=== PATIENT | male | born 1940 | race Caucasian/White ===

== ENCOUNTER → 2024-01-23 10:11 | Outpatient (REF) | payer MEDICARE, SELFPAY | LOC: RCS 10:11 | PROVIDERS: ATTENDING PHYSICIAN Internal Medicine | DX: I70.90 Unspecified atherosclerosis (principal); I25.10 Atherosclerotic heart disease of native coronary artery without angina pectoris; R42 Dizziness and giddiness | CPT/HCPCS: 93306 ==

== ENCOUNTER → 2024-01-27 13:17 | Outpatient (REF) | payer MEDICARE, SELFPAY | LOC: RAD 13:17 | PROVIDERS: ATTENDING PHYSICIAN Internal Medicine | DX: I70.90 Unspecified atherosclerosis (principal); I25.10 Atherosclerotic heart disease of native coronary artery without angina pectoris; R42 Dizziness and giddiness | CPT/HCPCS: 93880 ==

== ENCOUNTER → 2024-05-19 13:56 | Outpatient (REF) | payer MEDICARE, SELFPAY ==
[2024-05-20 18:32] LABS: PSA, Total - Diagnostic 0.25 ng/ml (0.0-4.0)
[2024-05-21 17:38] LABS: % Free Testosterone 1.3 % (1.6-2.9); Free Testosterone 47 pg/mL (47-244); Sex Hormone Binding Globulin 56 nmol/L (19-76); Total Testosterone 358 ng/dL (300-720)
== END ==
LOC: REG 13:56
PROVIDERS: ATTENDING PHYSICIAN Family Medicine Geriatric Medicine; FAMILY PHYSICIAN Internal Medicine
DX: C61 Malignant neoplasm of prostate (principal); Z79.818 Long term (current) use of other agents affecting estrogen receptors and estrogen levels
CPT/HCPCS: 36415; 84153; 84270; 84402; 84403

== ENCOUNTER 2024-09-12 00:31 | Inpatient (IN) | payer MEDICARE, SELFPAY ==
[2024-09-11] VITALS (7 sets, daily range): BP systolic 158–179; BP diastolic 77–91; BMI 28.3
[2024-09-11 18:26] LABS: % Basophils 0.4 % (0-2); % Eosinophils 0.4 % (0-6); % Immature Granulocytes 0.4 % (0-0.5); % Lymphocytes 6.9 % (20.5-51.1); % Monocytes 4.2 % (1.7-9.3); % Neutrophils 87.7 % (42.2-75.2); Absolute Basophils 0.1 10^3/uL (0-0.2); Absolute Eosinophils 0.1 10^3/uL (0-0.7); Absolute Immature Granulocytes 0.1 10^3/uL (0-0.05); Absolute Lymphocytes 0.8 10^3/uL (1.2-3.4); Absolute Monocytes 0.5 10^3/uL (0.1-0.6); Hematocrit 39.7 % (39.0-52.0); Mean Corp Hgb Conc. 35.3 g/dL (33.0-37.0); Mean Corpuscular Hgb 31.3 pg (27.0-31.0); Mean Corpuscular Volume 88.6 fL (80.0-94.0); Mean Platelet Volume 9.6 fL (7.4-10.4); Nucleated Red Blood Cells % 0 % (-); Platelet Count 231 10^3/uL (130-400); Red Blood Cell Count 4.48 10^6/uL (4.70-6.10); Red Cell Dist. Width 12.5 % (11.5-14.5); White Blood Cell Count 11.5 10^3/uL (4.8-10.8)
[2024-09-11 18:48] LABS: ALT (SGPT) 24 U/L (0-50); AST (SGOT) 30 U/L (17-59); Albumin 4.4 g/dl (3.5-5.0); Alkaline Phosphatase 75 U/L (38-126); Blood Urea Nitrogen 24 mg/dl (9-20); Carbon Dioxide 20 mmol/L (22-30); Chloride 105 mmol/L (98-107); Estimated Creatinine Clearance 50 ml/min; Glucose 111 mg/dl (70-99); Lipase 69 U/L (23-300); Potassium 4.6 mmol/L (3.5-5.1); Sodium 139 mmol/L (135-145); Total Bilirubin 0.7 mg/dl (0.2-1.3); eGFR > 60.00
[2024-09-11 19:06] LABS: Troponin I < 0.012 ng/ml
[2024-09-11] MEDS: PEPCID 20 MG IV (19:15)
[2024-09-11 19:26] LABS: Urine Albumin Trace (Neg - Trace); Urine Bilirubin Negative (Negative); Urine Character Clear (Clear); Urine Color Yellow; Urine Glucose Negative (Negative); Urine Ketone 3+ (Negative); Urine Leukocyte Negative (Negative); Urine Nitrite Negative (Negative); Urine Occult Blood Negative (Negative); Urine Specific Gravity 1.015 (<1.030); Urine Urobilinogen Negative (Neg - 1+); Urine pH 6.5 (5.0-9.0)
[2024-09-12] VITALS (15 sets, daily range): BP systolic 20–160; BP diastolic 54–86; BMI 27.9
--- NOTE | 2024-09-12 00:23 | ED.GENMED ---
History of Present Illness
General
Chief Complaint: Abdominal Pain
Source: patient
Exam Limitations: none
Time Seen by Provider: 09/11/24 18:05
Nursing documentation reviewed up to this point in time: agreed with
History of Present Illness
History of Present Illness:
83-year-old male with past medical history of asthma GERD, hypothyroidism presenting to the emergency department today with concerns of right upper quadrant and upper abdominal. Vomiting since this morning. Similar symptoms in the past. Denies
specific chest pain shortness of breath changes in bowel movements.
Review of Systems
Review of Systems
Allergies reviewed?: Yes
All Other Systems: ROS reviewed and negative except as documented in HPI and ROS
Phy Exam
Physical Exam
Physical Exam:
GENERAL: Alert , in no apparent distress
EYE: pupils equal and reactive
NECK: Supple, no significant adenopathy.
ENT: o/p clr, mmm.
CARDIAC: Regular rate and rhythm .
LUNGS: Clear breath sounds bilaterally, no acute respiratory distress, no wheezes/rales/rhonchi
ABDOMEN: Tender palpation throughout the upper abdomen.
NEUROLOGICAL: Alert and oriented, no focal neuro deficits
SKIN: Warm and dry, skin intact.
MUSCULOSKELETAL: No edema, well perfused.
PSYCH: Normal and appropriate interaction.
Course
Orders/Labs/Results
Orders:
Orders
09/11/24 17:42
Electrocardiogram (*1) Urgent
Reason for Study: Chest Pain
EKG- Treatment ONCE
09/11/24 18:20
Complete Blood Count/With Diff Urgent
Comprehensive Metabolic Panel Urgent
Lipase Urgent
Troponin I Urgent
09/11/24 18:57
CT Abd/Pel (IV only)-DH only Urgent
Comment:
Reason For Exam: diffuse abd pain, vomiting today
Famotidine [Pepcid] 20 mg IV NOW STA
09/11/24 19:18
Urinalysis Reflex To Culture Urgent
Date Specimen was Collected: 09/11/24
Time Specimen was Collected: 19:09
09/11/24 22:05
US Abdomen Complete/Upper Urgent
Comment:
Reason For Exam: ct concerning for acute addie
09/11/24 23:55
Ketorolac [Toradol] 30 mg IV NOW STA
Piperacillin/Tazo 3.375 Gram [Zosyn] 3.375 gram in 50 ml IV NOW
09/11/24 23:56
0.9% Sodium Chloride 500 ml [Nss] 500 ml IV BOLUS
09/12/24 08:00
Levothyroxine [Synthroid] 25 mcg PO DAILY
cyclosporine [Restasis] 1 drp OPHTHALMIC (EYE) DAILY
lifitegrast [Xiidra] 1 drop OPHTH DAILY
09/12/24 18:00
Rosuvastatin Calcium [Crestor] 10 mg PO QPM
Tamsulosin [Flomax] 0.4 mg PO QPM
Abnormal Lab Results
09/11/24 09/11/24
18:20 19:18
WBC 11.5 H 10^3/uL
(4.8-10.8)
RBC 4.48 L 10^6/uL
(4.70-6.10)
MCH 31.3 H pg
(27.0-31.0)
Abs Immat Gran (auto) 0.1 H 10^3/uL
(0-0.05)
Absolute Neuts (auto) 10.0 H 10^3/uL
(1.4-6.5)
Absolute Lymphs (auto) 0.8 L 10^3/uL
(1.2-3.4)
Neutrophils % 87.7 H %
(42.2-75.2)
Lymphocytes % 6.9 L %
(20.5-51.1)
Carbon Dioxide 20 L mmol/L
(22-30)
BUN 24 H mg/dl
(9-20)
Glucose 111 H mg/dl
(70-99)
Urine Ketones 3+ A
(Negative)
09/11/24 18:20
09/11/24 18:20
Vital Signs
Initial and Last Documented VS:
Initial Vital Signs
Temp Pulse Resp BP Pulse Ox
97.1 F 67 18 179/78 97
09/11/24 17:41 09/11/24 17:41 09/11/24 17:41 09/11/24 17:41 09/11/24 17:41
Last Documented Vital Signs
Temp Pulse Resp BP Pulse Ox
97.1 F 94 18 160/84 97
09/11/24 17:41 09/12/24 00:15 09/11/24 18:12 09/12/24 00:03 09/12/24 00:15
MDM/Problems Addressed
MDM/Problems Addressed:
83-year-old male presenting to the emergency department today with concerns of upper abdominal pain starting this morning associated nausea and vomiting. No diarrhea. Blood pressure elevated upon arrival otherwise vital signs are normal. Slight
white count on labs 11.5. Chemistry without emergent findings troponin negative no evidence of cardiac etiology. Abdomen CT scan was performed considering patient's vague abdominal pain. There is concerning features for cholecystitis. He then
subsequently had an ultrasound showing further concerning features of cholecystitis. Case discussed with general surgery then admitted to medicine for monitoring and assessment by general surgery.
*Critical Care Note
Total Time (30-74mins, 75-104mins- exclusive of procedures): Not Applicable
ED Attending Note
-
Portions of this chart may have been created with voice recognition software.� Occasional wrong word or��sound alike� substitutions may have occurred due to the inherent limitations of voice recognition software.
Discharge Plan
Departure
Patient Disposition: Admit
Date of Disposition: 09/12/24
Time of Disposition: 00:26
Admit to: Med/Surg
Admit to doctor: Kalpana
Presentation/result/management discussed w/ accepting MD/DO: Hospitalist
Patient with high blood pressure during this ER visit?: No
Condition: Good
Covid-19: Not Applicable
Discharge Problem:
Acute cholecystitis
Prescriptions:
No Action
levothyroxine [Synthroid] 25 mcg Tablet
25 mcg PO DAILY
tamsulosin [Flomax] 0.4 mg Capsule
0.4 mg PO QPM
cyclosporine [Restasis] 0.05 % Dropperette
1 drp OPHTHALMIC (EYE) DAILY
metformin 750 mg Tablet Extended Release 24 Hr
750 mg PO QPM
rosuvastatin [Crestor] 10 mg Tablet
10 mg PO QPM
omega 2-obo-whn-fish oil [Fish Oil] 1,000 mg (120 mg-180 mg) Capsule
2 cap PO BID
psyllium husk [Metamucil] 0.4 gram Capsule
0.4 g PO BID
Xiidra 5 % Dropperette
1 drp OPHTHALMIC (EYE) DAILY
Red Grape Leaves
1 cap PO DAILY
Patient Comments:
Similar to Resveritrol
PreserVision AREDS-2 250-90-40-1 mg Capsule
1 tab PO BID
Referrals:
Babs Bhardwaj MD [Family Provider] -
Interventions
Interventions:
*Risk Screen - Suicide Last Done: 09/11/24 17:41
*General Assessment Last Done: 09/11/24 17:41
*Neglect/Abuse Screening Last Done: 09/11/24 17:41
SR-Kuqvtt-Opshsmatzz Assessment Last Done: 09/11/24 18:24
Discharge Date and Time
Print Language: ITALIAN
--- NOTE | 2024-09-12 00:25 | HPS.HSE ---
Family Physician
-
Family Physician: Babs Bhardwaj
Chief Complaint
-
Epigastric abdominal pain and vomiting
History of Present Illness
This is a 83-year-old male who has past medical history that significant for prostate cancer s/p radiation, hypothyroidism, GERD, BPH presenting to the emergency department with a 1 day history of epigastric abdominal pain associated with nonbilious
and nonbloody emesis.
Patient reported that he arose in usual state of health. The previous evening ED had 4 bottles of beer which is to more than his usual. He had no symptoms at that time. When he arose he felt uncomfortable in the epigastric region and developed a
bandlike pain across his upper abdomen. He had several bouts of nonbloody and nonbilious emesis of mostly clear material. He denies any recent melena or hematochezia. He denies any recent heartburn symptoms. Patient was recently on NSAIDs for
tooth extraction in preparation for implantation. He noticed that while in reliable his pain was worsened with bumps and vehicle movement. Denied having fevers or chills at home. Denied any dysuria or hematuria. Patient denies history of
alcoholic pancreatitis. He denies any history of gallstone disease. Unclear whether he has had an appendicitis in the past status post surgery.
On arrival in the ED he was afebrile with a blood pressure in the 180s systolic. He was satting 9 7% on room air. He had a white count of 11.5 with a normal hemoglobin and platelet count. Chemistries were unremarkable. LFTs were within normal
limits. Troponin was negative. UA was unremarkable. Ultrasound showed mild sludge and possible gallbladder wall thickening. He CT scan shows EZH2 the gallbladder wall. No definite pericholecystic fluid.
Medical History
Past Medical History
Past Medical History: Reports GERD, Hypercholesterolemia and Hypothyroidism
Additional Past Medical History:
Prostate cancer
Past Surgical History: Reports None
Additional Past Surgical History:
Prostate biopsy
Social History
Tobacco: Non-smoker
Alcohol: Daily
Drug: None
Personal:
Living: With Family
Employment: Retired
Family History
Family History: Not pertinent
Allergies / Home Medications
Allergies reflects when Allergies were last updated in [employer].
Home Medications with original date entered in [employer]
Allergy/Medication List:
Allergies
Allergy/AdvReac Type Severity Reaction Status Date / Time
No Known Allergies Allergy Verified 09/11/24 17:41
Home Medications
Red Grape Leaves 1 cap PO DAILY 07/15/22
cyclosporine 0.05 % eye drops in a dropperette (Restasis) 1 drp ophthalmic (eye) DAILY 07/15/22
levothyroxine 25 mcg tablet (Synthroid) 25 mcg PO DAILY 07/15/22
lifitegrast 5 % eye drops in a dropperette (Xiidra) 1 drp ophthalmic (eye) DAILY 07/15/22
metformin 750 mg tablet,extended release 24 hr 750 mg PO QPM 07/15/22
omega 2-cqx-pny-fish oil 1,000 mg (120 mg-180 mg) capsule (Fish Oil) 2 cap PO BID 07/15/22
psyllium husk 0.4 gram capsule (Metamucil) 0.4 g PO BID 07/15/22
rosuvastatin 10 mg tablet (Crestor) 10 mg PO QPM 07/15/22
tamsulosin 0.4 mg capsule (Flomax) 0.4 mg PO QPM 07/15/22
vit C 250 mg-vit E 90 mg-zinc 40 mg-copper 1 dx-fmzttw-gokodz capsule (PreserVision AREDS-2) 1 tab PO BID 09/11/24
Review of Systems
-
Constitutional: Reports No Symptoms
EENT: Reports No Symptoms
Respiratory: Reports No Symptoms
Cardiac: Reports No Symptoms
Abdomen/GI: Reports Abdominal Pain and Vomiting
: Reports No Symptoms
Musculoskeletal: Reports No Symptoms
Skin: Reports No Symptoms
Neurological: Reports No Symptoms
Endocrine: Reports No Symptoms
Hematologic/Lymphatic: Reports No Symptoms
Psych: Reports No Symptoms
Physical Exam
Vital Signs
Vital Signs
Temp Pulse Resp BP Pulse Ox
97.1 F 94 18 160/84 97
09/11/24 17:41 09/12/24 00:15 09/11/24 18:12 09/12/24 00:03 09/12/24 00:15
Physical Exam
General: Well Developed, Well Nourished, No Apparent Distress and Conversant
HEENT: NormoCephalic, Anicteric, Moist mucous membranes, Atraumatic and PERRLA
Respiratory: Clear
Cardiac: S1/S2 and Regular Rhythm
GI: Soft and Tender (RUQ tenderness)
Rectal: Deferred by Provider
Genito-urinary: Deferred by me
Musculoskeletal: No Clubbing, No Cyanosis and No Edema
Neuro: AO x 3
Hematologic/Lymphatic: No Lymphadenopathy
Psych: Calm
Laboratory Results
-
09/11/24 18:20
09/11/24 18:20
Laboratory Results
Total Bilirubin 0.7 mg/dl (0.2-1.3) 09/11/24 18:20
AST 30 U/L (17-59) 09/11/24 18:20
ALT 24 U/L (0-50) 09/11/24 18:20
Alkaline Phosphatase 75 U/L (38-126) 09/11/24 18:20
Troponin I < 0.012 ng/ml 09/11/24 18:20
Lipase 69 U/L (23-300) 09/11/24 18:20
Data Reviewed
-
CT Scan: Report Reviewed by me
Ultrasound: Report Reviewed by me
Lab Data: Labs Reviewed by me
Old Records: Reviewed
Impression/Plan
-
IMPRESSION:
83-year-old coming with episode of acute abdominal pain that started this a.m. and associated with nonbilious and nonbloody emesis. Pain is localized in the upper abdomen and radiates across the upper abdomen. Worse with movement. On exam he does
have a right upper quadrant tenderness to palpation. Labs are notable for leukocytosis. Imaging showed mild sludge and possible gallbladder wall thickening and there is a gallbladder consistent with cholecystitis. No biliary ductal dilatation.
LFTs are within normal limits. Negative lipase. Besides the pain is otherwise well-appearing and nontoxic.
PLAN:
1. ABD Pain -acute abdominal pain possibly secondary to acute cholecystitis. Patient is well-appearing and in no acute distress. Cannot rule out possible gastritis in the setting of NSAID use and increased alcohol intake for 1 day.
- admit to med/surg
- NPO for now
- started on IV zosyn, will continue empirically for acute cholecystitis
- gentle maintenance fluids, pain control and antiemetics
- gi ppx with ppi iv
- blood cultures if spike fever.
- trend LFTs, given equivocal findings on imaging, will get HIDA scan
- surgery aware and consulted to see patient in am.
- holding metformin (not diabetic, A1c < 6), continue tamsulosin
DVT PPX - lovenox sq
Code Status - Full Code, previously DNR
[2024-09-12] MEDS: NSS 500 IV (00:57)
[2024-09-12] MEDS: TORADOL 30 MG IV (00:59)
[2024-09-12] MEDS: ZOSYN 50 IV ×5 (01:02→23:23)
[2024-09-12] MEDS: LR 1000 IV ×2 (02:15→23:27)
--- NOTE | 2024-09-12 02:47 | PTCARENOTE ---
Pt arrived via stretcher from ED at 0145. Pt was able to ambulate to bed. Pt AAOX3. VSS. IVF per order. head to toe assessment complete. Pt NPO for possible surgery. oriented to room and call mancera. bed locked and in lowest position.
[2024-09-12] MEDS: SYNTHROID 25 MCG PO (05:07)
--- NOTE | 2024-09-12 05:34 | PTCARENOTE ---
first set of CHG wipes complete.
[2024-09-12 07:05] LABS: Hematocrit 40.7 % (39.0-52.0); Hemoglobin 14.3 g/dL (13.0-18.0); Mean Corp Hgb Conc. 35.1 g/dL (33.0-37.0); Mean Corpuscular Hgb 32.6 pg (27.0-31.0); Mean Corpuscular Volume 92.7 fL (80.0-94.0); Mean Platelet Volume 10.4 fL (7.4-10.4); Platelet Count 247 10^3/uL (130-400); Red Blood Cell Count 4.39 10^6/uL (4.70-6.10); Red Cell Dist. Width 12.6 % (11.5-14.5); White Blood Cell Count 18.8 10^3/uL (4.8-10.8)
[2024-09-12 07:24] LABS: ALT (SGPT) 23 U/L (0-50); AST (SGOT) 29 U/L (17-59); Albumin 4.4 g/dl (3.5-5.0); Alkaline Phosphatase 61 U/L (38-126); Blood Urea Nitrogen 22 mg/dl (9-20); Calcium 9.6 mg/dl (8.4-10.2); Carbon Dioxide 22 mmol/L (22-30); Chloride 101 mmol/L (98-107); Direct Bilirubin 0.1 mg/dl (0.0-0.4); Estimated Creatinine Clearance 45 ml/min; Glucose 110 mg/dl (70-99); Lipase 54 U/L (23-300); Potassium 4.1 mmol/L (3.5-5.1); Sodium 139 mmol/L (135-145); Total Bilirubin 1.1 mg/dl (0.2-1.3); eGFR 54.85
[2024-09-12] MEDS: PROTONIX IV 40 MG IV (08:33)
[2024-09-12] MEDS: NSS (PRESERVATIVE FREE) 10 ML IV (08:34)
[2024-09-12] MEDS: RESTASIS 0.05% OPHTHALMIC EMULSION 1 DROPS BOTH EYES (08:34)
--- NOTE | 2024-09-12 08:56 | CON.GS ---
Addendum entered and electronically signed by Boby Suresh MD 09/12/24 10:46:
I saw and examined the patient independently.
The Press Operator's note was reviewed and I agree with the note, assessment and plan except where noted below.
Comment: This is an 83-year-old male with a history of prostate cancer status post XRT, no prior abdominal surgeries who presents with a postprandial right upper quadrant abdominal pain. CT and ultrasound imaging concerning for acute cholecystitis.
Has developed a leukocytosis since admission. Tender to palpation in the right upper quadrant.
Cancel HIDA scan.
Will plan for a laparoscopic cholecystectomy with cholangiogram today.
N.p.o., IV fluids, IV Zosyn.
Risks/Benefits/Alternatives, expected postoperative course and possible complications (bleeding, infection, injury to surrounding structures, acute/chronic pain) discussed at length. Patient wishes to proceed with surgery. All questions answered.
Consent obtained.
I spent 60 minutes in total for the care of this patient today including direct patient care and counseling, reviewing labs, imaging, coordination of care, as well as documentation.
Original Note:
Consultation
-
Date/Time Consultation Requested: 09/12/24143
Requesting Provider: Kalpana
Reason for Consultation: acute abdomen
Medical History
-
Chief Complaint: upper abdominal pain/nausea
History of Present Illness:
Mr. Arnold is an 83 yo male with a h/o prostate ca tx with XRT, hyperglycemia on metformin (denies h/o diabetes) and no prior abdominal surgeries who presented through the ED last night with upper abdominal pain. He notes he had a large breakfast
yesterday with eggs and burt and about an hour later developed nausea with vomiting. He vomited about 3 times, small amounts each time, and then developed upper abdominal pain starting in the RUQ and stretching like a band under his diaphragm
across his abdomen. On exam, he has significant RUQ tenderness to light palpation with involuntary guarding. He denies active nausea at this time. He denies fevers or chills. He notes he voids frequently at baseline which is unchanged. He denies
diarrhea or constipation and passed a soft stool this am.
Past Medical History
Past Medical History: Cancer (prostate s/p XRT), Hypercholesterolemia, Hypothyroidism and Other (hyperglycemia on metformin)
Past Surgical History: Tonsilectomy
Social History
Tobacco: Non-Smoker
Alcohol: Occasional (4+times a week)
Personal:
Living: With Family
Family History
Family History: Reviewed & Not Pertinent
Allergies / Home Medications
Allergy/AdvReac Type Severity Reaction Status Date / Time
No Known Allergies Allergy Verified 09/11/24 17:41
�Medication �Instructions �Recorded �Confirmed �Type
Red Grape Leaves 1 cap PO DAILY 07/15/22 09/11/24 History
cyclosporine 0.05 % eye drops in a 1 drp ophthalmic (eye) DAILY 07/15/22 09/11/24 History
dropperette (Restasis)
levothyroxine 25 mcg tablet 25 mcg PO DAILY 07/15/22 09/11/24 History
(Synthroid)
lifitegrast 5 % eye drops in a 1 drp ophthalmic (eye) DAILY 07/15/22 09/11/24 History
dropperette (Xiidra)
metformin 750 mg tablet,extended 750 mg PO QPM 07/15/22 09/11/24 History
release 24 hr
omega 7-nip-zei-fish oil 1,000 mg 2 cap PO BID 07/15/22 09/11/24 History
(120 mg-180 mg) capsule (Fish Oil)
psyllium husk 0.4 gram capsule 0.4 g PO BID 07/15/22 09/11/24 History
(Metamucil)
rosuvastatin 10 mg tablet (Crestor) 10 mg PO QPM 07/15/22 09/11/24 History
tamsulosin 0.4 mg capsule (Flomax) 0.4 mg PO QPM 07/15/22 09/11/24 History
vit C 250 mg-vit E 90 mg-zinc 40 1 tab PO BID 09/11/24 09/11/24 History
mg-copper 1 [id number]-iigjbn
capsule (PreserVision AREDS-2)
Review of Systems
-
History Source: Patient
All other systems: Negative unless noted
A 10 point review of systems was completed, and was negative except as per HPI.
Physical Exam
Vital Signs
Temp Pulse Resp BP Pulse Ox
98.0 F 87 18 124/66 99
09/12/24 07:35 09/12/24 07:35 09/12/24 07:35 09/12/24 07:35 09/12/24 07:35
09/11/24 09/12/24 09/13/24
06:59 06:59 06:59
Actual Weight 88.054 kg
Body Mass Index (BMI) 27.9
Lab Results
09/12/24 05:21
09/12/24 05:21
WBC 18.8 10^3/uL (4.8-10.8) H 09/12/24 05:21
Hgb 14.3 g/dL (13.0-18.0) 09/12/24 05:21
Hct 40.7 % (39.0-52.0) 09/12/24 05:21
Plt Count 247 10^3/uL (130-400) 09/12/24 05:21
Abs Immat Gran (auto) 0.1 10^3/uL (0-0.05) H 09/11/24 18:20
Neutrophils % 87.7 % (42.2-75.2) H 09/11/24 18:20
Physical Exam
General: Well Developed and Well Nourished
HEENT: Moist Mucous Membranes
Respiratory: Non Labored Respirations
GI: Soft, Non Distended and Tender (significant to the RUQ with light palpation, involuntary guarding)
Skin: Warm and Dry
Neuro: Awake, Alert and AO x 3
Psych: Calm
Data Reviewed
-
CT Scan: Image Personally Visualized and interpreted, Report Reviewed by me, Discussed with Physician and Discussed with Patient
Ultrasound: Image Personally Visualized and interpreted, Report Reviewed by me, Discussed with Physician and Discussed with Patient
Labs: Labs Reviewed by me, Discussed with Physician and Discussed with Patient
Assessment / Plan
-
83 yo male with h/o prostate ca s/p XRT who developed n/v/RUQ pain across his upper abdomen after eating a fatty meal yesterday. CT imaging with hazy stranding around the gallbladder wall with thickening and sludge vs stones on US. Both imaging
studies as well as history and exam consistent with acute calculous cholecystitis. Leukocytosis present. LFT's normal. Afebrile.
--Keep NPO for OR later today for lap addie
--Cancel HIDA scan
--Continue abx with IV zosyn
--Analgesics/antiemetics prn
--C/W IVF
--VTE ppx with SCD's
--- NOTE | 2024-09-12 10:17 | CM ---
Reviewed the chart notes and spoke with the patient at the bedside. The patient resides with his spouse in a [place] with 22 total steps to enter. The patient reports no DME/VN/SNF in the past. The patient confirmed his pharmacy of choice
is the [facility]. The patient is scheduled to go to the OR today for a lap addie. CM continues to be available to patient/family and is monitoring medical plan for needs at discharge.
Plan: Discharge plans will depend on the patient's progress.
--- NOTE | 2024-09-12 10:46 | W.SUR.PREOP ---
Pre-Operative Surgical Note
-
I have examined this patient prior to the performance of the scheduled procedure.
The patient's condition is unchanged from the time of the current History and
Physical and the patient is able to undergo the scheduled procedure.
--- NOTE | 2024-09-12 11:18 | W.PN.HOSP.TC ---
Today's Communication/Plan
-
dc
Assessment / Plan
Assessment / Plan
Physical Exam
General: Well Developed, Well Nourished, No Apparent Distress and Conversant
HEENT: Normocephalic, Anicteric, Moist mucous membranes, Atraumatic and PERRLA
Respiratory: Clear
Cardiac: S1/S2 and Regular Rhythm
GI: Soft and status post surgery with right lower drain noted
Genito-urinary: No Feliciano
Musculoskeletal: No Clubbing, No Cyanosis and No Edema
Neuro: AO x 3
Hematologic/Lymphatic: No Lymphadenopathy
Psych: Calm
83-year-old coming with episode of acute abdominal pain
# Acute Gangrenous cholecystitis, intra-abdominal abscess s/p Laparoscopic Cholecystectomy with Cholangiogram and Drainage of intra-abdominal abscess with drain by Dr. Suresh on 09/12/24. No complications reported.
Doing well
Tolerating diet
RICO drain removed this morning. Instructions given verbally on wound care and will also be put in d/c instructions
d/w ID, ok to go on oral Augmentin, and will f/w pt if changes needed
d/w surgery, ok to go home
# Hypothyroidism, continue Synthroid
#Hyperlipidemia, continue with the Crestor
# History of GERD, continue with PPI
Total dc time spent to see the patient on the floor, examine the patient, review data and lab results, discuss discharge plan with patient, nursing staff around 55 minutes
Anticipated Discharge: Today
Subjective/Interval History
-
Date of Service: September 12, 2024
No chest pain
Tolerating diet
Objective Data
-
Labs:
Laboratory Results
09/12/24
05:21
WBC 18.8 H
Hgb 14.3
Hct 40.7
Plt Count 247
Sodium 139
Potassium 4.1
Chloride 101
Carbon Dioxide 22
BUN 22 H
Creatinine 1.3
Glucose 110 H
Calcium 9.6
Total Bilirubin 1.1
AST 29
ALT 23
Alkaline Phosphatase 61
Vital Signs:
Vital Signs
Temp Pulse Resp BP Pulse Ox
98.0 F 87 18 124/66 99
09/12/24 07:35 09/12/24 07:35 09/12/24 07:35 09/12/24 07:35 09/12/24 07:35
I&O
09/11/24 09/12/24 09/13/24
06:59 06:59 06:59
Intake Total 400 / 400
Balance 400 / 400
--- NOTE | 2024-09-12 14:19 | W.IMMPOSTOP ---
Surgical Immed Post Op Note
-
Primary Surgeon: Boby Suresh MD
Assisting Surgeon: None
Assistants:
ASHWIN Serna
FRANTZ Corcoran
Pre-op Diagnosis: Acute cholecystitis
Post-op Diagnosis: gangrenous cholecystitis, intra-abdominal abscess
Procedure Performed:
1. Laparoscopic cholecystectomy and cholangiogram
2. Drainage of intra-abdominal abscess
Anesthesia Type: General
Specimen / Cultures:
1. Right upper quadrant fluid for Gram stain aerobic and anaerobic culture.
2. Gallbladder and contents
Estimated Blood Loss: 7 cc
Complications: [None]
Operative Findings: Purulent brown fluid noted in the right upper quadrant. Gangrenous cholecystitis. Critical view of safety obtained prior to a cholangiogram which demonstrated no distal filling defects. The gallbladder wall was very friable
and multiple rents were made with spillage of bile but no stones. Duct ligated with a clip followed by a 0 PDS Endoloop.
POST OP PLAN:
Imaging: [None]
Labs: [Routine AM]
Diet: Okay for clears today.
Analgesia: Tylenol 650mg q6 Dajuan, Carmen 5mg q6 PRN, Dilaudid 0.5mg q2h PRN
Neuro/vascular checks: [q4h]
AC/AP: [Hold Therapeutic AC], Ok for DVT PPx
Activity: [Ad Shannan]
Wound/Incisions/Drains: [Routine], RICO to bulb suction.
Abx: Antibiotics x 4 days
Dispo: [RNF], anticipate discharge home Thursday versus more likely Thursday pending clinical course. Will likely be able to remove RICO drain prior to discharge.
--- NOTE | 2024-09-12 15:46 | PTCARENOTE ---
Received patient from PACU via bed around 1535 in stable condition. RCIO to RLQ draining seriousangunous drainage. 3 lap sites to abdomen MOON with surgi glue. at bedside. Call mancera in reach.
[2024-09-12] MEDS: DILAUDID 0.5 MG IV (16:18)
[2024-09-12] MEDS: CRESTOR 10 MG PO (17:56)
[2024-09-12] MEDS: FLOMAX 0.4 MG PO (17:56)
[2024-09-13 02:45] VITALS: BP 109/60
[2024-09-13] MEDS: ZOSYN 50 IV ×4 (05:22→23:43)
[2024-09-13] MEDS: SYNTHROID 25 MCG PO (05:22)
--- NOTE | 2024-09-13 07:00 | W.PN.GS2 ---
Addendum entered and electronically signed by Kwame Barnett MD 09/13/24 10:17:
Patient seen and examined. Agree with assessment plan as documented below.
No major complaints. Reports soreness at drain insertion site and with movement. No nausea or vomiting. Reports increased abdominal distention and some bloating. No flatus or BM. Ambulating. Frequent voiding.
Gen: NAD
Abd: soft, mild tenderness, distended, non-peritoneal, incisions c/d/i - no erythema, ecchymosis or drainage, RICO serosang
Patient is a 83 yo M POD#1 s/p laparoscopic cholecystectomy with IOC
Recovering well overall. No major postoperative concerns. Clinical monitoring of dietary tolerance and abdominal distention, may develop ileus.
-- LFD
-- Pain control: Tylenol, Oxycodone, holding on Toradol as Cr slightly up to 1.3
-- IVF, will reassess DC based on dietary tolerance
-- Abx: Zosyn, plan for 4 days post-op treatment
-- Home meds, Flomax
-- DVT: Lovenox
-- GI PPI
-- Monitor in Hospital for today for IV abx, drain management and ileus watch
Original Note:
Today's Communication / Plan
-
LFD, c/w IV Abx. Likely d/c tomorrow
Assessment / Plan
-
83 yo M w/ acute gangrenous cholecystitis and secondary intra-abdominal abscess s/p cholecystectomy and drain placement POD1
- C/w IVF for now, pending PO intake. If patient is tolerating PO, can d/c fluids in the afternoon.
- Start on LFD
- c/w IV Abx, will d/c on PO abx for a total 4 day course
- c/w RICO drain, likely remove tomorrow
Subjective Data
-
Still having abdominal pain & bloating. No new fevers or chills. He is not passing gas.
Objective Data
-
Intake and Output
09/12/24 09/13/24 09/14/24
06:59 06:59 06:59
Intake Total 400 / 400 1640 / 1640
Output Total 375 / 375
Balance 400 / 400 1265 / 1265
Intake:
Oral fluids 240 / 240
IV fluids (Total) 300 / 300 1300 / 1300
normosol 100 / 100
IV piggybacks 100 / 100 100 / 100
Output:
Drain Output (Total) 50 / 50
Right Alejo-Bustillo 50 / 50
Urine, Voided 325 / 325
Other:
How many times incontinent 2
MODERATE amount urine
How many times incontinent 1
SATURATED amount urine
Vital Signs
Temp Pulse Resp BP Pulse Ox
98.4 F 70 20 109/60 97
09/13/24 02:45 09/13/24 02:45 09/13/24 02:45 09/13/24 02:45 09/13/24 02:45
Lab Results
09/12/24 05:21
09/12/24 05:21
Calcium 9.6 mg/dl (8.4-10.2) 09/12/24 05:21
Total Bilirubin 1.1 mg/dl (0.2-1.3) 09/12/24 05:21
Direct Bilirubin 0.1 mg/dl (0.0-0.4) 09/12/24 05:21
AST 29 U/L (17-59) 09/12/24 05:21
ALT 23 U/L (0-50) 09/12/24 05:21
Alkaline Phosphatase 61 U/L (38-126) 09/12/24 05:21
Total Protein 7.0 g/dl (6.3-8.2) 09/12/24 05:21
Albumin 4.4 g/dl (3.5-5.0) 09/12/24 05:21
Physical Exam
-
General: NAD. Nontoxic. Mild discomfort.
Abdominal: Distended, TTP, tympanitic. Drain site is clean. Lap incisions are well appearing with surgical glue, w/o erythema, warmth, induration or drainage. Drain output is serosanguineous.
[2024-09-13 07:35] VITALS: BP 101/56
[2024-09-13] MEDS: RESTASIS 0.05% OPHTHALMIC EMULSION 1 DROPS BOTH EYES (08:22)
[2024-09-13] MEDS: NSS (PRESERVATIVE FREE) 10 ML IV (08:22)
[2024-09-13] MEDS: PROTONIX IV 40 MG IV (08:22)
--- NOTE | 2024-09-13 09:12 | OR.RPT ---
Addendum entered and electronically signed by Boby Suresh MD 09/13/24 09:20:
Additional details about the procedure:
After the gallbladder was placed in Endo Catch bag a 19 Turkish round Van drain was introduced through the right lateralmost port and placed across the gallbladder fossa. This was secured to the skin with a 2-0 nylon suture and placed to bulb
suction.
Original Note:
Operative Report
Operative Report
Patient Name: Temo Arnold
: 1940
Date of Operation: 09/12/2024
Preoperative Diagnosis: Acute cholecystitis
Postoperative Diagnosis: Gangrenous cholecystitis, intra-abdominal abscess
Procedure(s):
1. Laparoscopic Cholecystectomy with Cholangiogram
2. Drainage of intra-abdominal abscess
Surgeon(s):
Dr. Suresh
Dat Instructor(s):
ASHWIN Hernandez
FRANTZ Corcoran
Anesthesia: General
Estimated Blood Loss: 7 cc
Urine Output: None
Drains/Lines/Implants: 19 Turkish round Van drain in right upper quadrant.
Specimens:
1. Right upper quadrant fluid for Gram stain aerobic and anaerobic culture.
2. Gallbladder and contents
HPI/Surgical Indications:
This is an 83-year-old male who presents with 2 days of abdominal pain. Exam, labs and imaging are consistent with acute cholecystitis. Risks/Benefits/Alternatives were discussed at length, and the patient agreed to proceed with surgery.
Operative Findings: Purulent brown fluid noted in the right upper quadrant. Gangrenous cholecystitis. Critical view of safety obtained prior to a cholangiogram which demonstrated no distal filling defects. The gallbladder wall was very friable
and multiple rents were made with spillage of bile but no stones. Duct ligated with a clip followed by a 0 PDS Endoloop.
Procedure Description:
The patient was brought to the Operating Room and placed in the supine position with one arm tucked. Following uneventful induction of general endotracheal anesthesia, an orogastric tube was placed. The abdomen was prepped and draped in the usual
sterile fashion. A timeout was performed confirming the procedure, consent, and that IV antibiotics were infused and sequential compression devices were confirmed to be on. The abdomen was entered using an infraumbilical open Adair technique with a
12 mm balloons-tipped trocar. Pneumoperitoneum to 15 mmHg pressure was obtained without difficulty and we confirmed that no injury had occurred during our entry. The patient was positioned in reverse Trendelenberg and rotated with the right side up
slightly. Three (3) 5mm trocars were then placed along the right subcostal margin. We immediately noticed brown purulent fluid in the right upper quadrant that was cultured before suctioning. The gallbladder was tense and necrotic so was
decompressed using an aspiration needle before a locking grasping forceps was placed on the fundus of the gallbladder where it was then retracted cephalad and to the right. Using appropriate grasping instruments, the peritoneum overlying the
triangle of Calot was incised and extended superiorly on both the anterior and posterior gallbladder florence. The infundibulum was dissected off the cystic plate. The cystic triangle was dissected until a critical view of safety was achieved. The
cystic artery was medialized, dissected and controlled with 2 proximal clips and 1 distal. The cystic duct/gallbladder junction in turn was identified, dissected circumferentially and a clip was placed. A ductotomy was made and a cholangiocatheter
on an Ortiz clamp was inserted into the cystic duct. A C-arm was draped and brought into the field. An intra-operative cholangiogram was performed and was noted to have:
No filling defects in the biliary tree
No significant biliary dilation
Brisk flow of contrast into the duodenum
Normal biliary anatomy
The catheter was then removed and the cystic duct was controlled with a clip followed by a 0 PDS Endoloop. After ensuring both the artery and duct were divided, the gallbladder was freed from the liver using electrocautery. The gallbladder wall
was thin and necrotic souls multiple small rents were made with spillage of bile which was all suctioned up, but no spillage of stones]. The gallbladder bed was inspected and excellent hemostasis was obtained. The gallbladder was extracted through
the 12 mm trocar site using an endocatch bag. The abdomen was again irrigated and excellent hemostasis was assured. All remaining trocars were then removed and the pneumoperitoneum was evacuated. The 12 mm trocar site was closed using 0 PDS
suture. All trocar sites were closed at the skin level using 4-0 Monocryl followed by Dermabond. Overall, the patient tolerated the procedure well and was taken to the Recovery Room postoperatively in stable condition.
I was the attending physician and performed the procedure with assistance from the RNFAs above. I was present for all portions of the case.
.
Boby Suresh MD
--- NOTE | 2024-09-13 10:02 | CON.ID ---
Consultation
-
Date/Time Consultation Requested: September 13, 2024 0634
Date/Time Consultation Performed: September 13, 2024 1000
Requesting Provider: Dr. Jeanne Matson
Performing Provider: Dr. Brook Ndiaye
Reason for Consultation: Intra-abdominal abscess
Chief Complaint / Past History
Chief Complaint
Abdominal pain
History of Present Illness
History obtained from the patient as well as from his who is an Internal Medicine physician. He is a 83-year-old male with history of hypothyroidism, prostate cancer status post radiation, BPH who has been having intermittent nausea and
retching for the past month. Abdominal pain the evening of September 11, he developed epigastric pain with nausea and vomiting while at [facility]. No fevers or chills. They drove back home. His noted patient with Nolasco sign. They came to
the ED right away September 12. CAT scan and abdominal ultrasound showed acute cholecystitis. White count was 11.5. September 12 he underwent laparoscopic cholecystectomy and found to have gangrenous gallbladder with purulence in right upper
quadrant. During surgery the gallbladder wall was very friable with spillage of bowel contents. Cholangiogram negative biliary stones. He is currently on Zosyn. Today he has discomfort at the RICO drain site. Weak urinary stream. No bowel
movements yet.
Past History
Additional Past Medical History:
HYperglycemia
Hypothyroidism
Dyslipidemia
Aortic sclerosis
BPH
Prostate cancer status post radiation
Allergy History:
No Known Allergies Allergy (Verified 09/11/24 17:41)
Medications Reviewed: Yes
Current Antibiotics:
Zosyn d3
Social History
Tobacco: Non-Smoker
Alcohol: Occasional
Drug: None
Personal:
Living: With Family ( (physician))
Family History
Family History: Not Pertinent
Review of Systems
Review of Systems
General: Change in Appetite; Negative Fever or Chills
HEENT: Negative Sinus Problems, Headache or Pharyngitis
Cardiovascular: Negative Chest Pain
Respiratory: Negative Dyspnea or Cough
Genital / Urological: Negative Dysuria or Flank Pain
Skin / Hair / Nails: Negative Rash
Neurological: Negative Headache or Dizziness
All systems: All other systems were reviewed and were negative
Vital Signs
Temp Pulse Resp BP Pulse Ox
98.1 F 69 18 101/56 99
09/13/24 07:35 09/13/24 07:35 09/13/24 07:35 09/13/24 07:35 09/13/24 07:35
Physical Exam
Physical Exam
Constitutional: No Acute Distress and Comfortable
Eyes: No Conjunctival Hemorrhage and Sclera Anicteric
Cardiovascular: Regular Rate, S1/S2 and Murmur (2/6 RUSB)
Pulmonary: Clear
Gastrointestinal: Soft and Tender (mild Rmid quadarant RICO drainage site - cloudy serosanguinous fluid)
Genito-Urinary: Negative Feliciano or CVA Tenderness
Extremities: Negative Edema
Neurological: AO x 3
Lab / Diagnostic Study Results
09/12/24 05:21
09/12/24 05:21
Abs Immat Gran (auto) 0.1 10^3/uL (0-0.05) H 09/11/24 18:20
Absolute Neuts (auto) 10.0 10^3/uL (1.4-6.5) H 09/11/24 18:20
Absolute Lymphs (auto) 0.8 10^3/uL (1.2-3.4) L 09/11/24 18:20
Absolute Monos (auto) 0.5 10^3/uL (0.1-0.6) 09/11/24 18:20
Absolute Basos (auto) 0.1 10^3/uL (0-0.2) 09/11/24 18:20
Immature Gran % 0.4 % (0-0.5) 09/11/24 18:20
Neutrophils % 87.7 % (42.2-75.2) H 09/11/24 18:20
Lymphocytes % 6.9 % (20.5-51.1) L 09/11/24 18:20
Monocytes % 4.2 % (1.7-9.3) 09/11/24 18:20
Eosinophils % 0.4 % (0-6) 09/11/24 18:20
Basophils % 0.4 % (0-2) 09/11/24 18:20
Microbiology Results
Micro:
09/12/24 13:45 Anaerobic Culture - Pending
Abdomen
09/12/24 13:45 Wound Culture - Pending
Abdomen Gram Stain - Pending
09/11/24 CT a/p: Hazy about the gallbladder wall. This may be due to acute cholecystitis. Clinical and laboratory correlation recommended as well as confirmation with abdominal ultrasound if indicated clinically
09/11/24 Abd US: Mild gallbladder sludge versus a nonshadowing gallstone. Less likely. Associated gallbladder wall thickening. Findings concerning for acute cholecystitis.
Assessment / Plan
# Acute gangrenous cholecystitis
# RUQ intra-abd abscess
# Leukocytosis worse today
- 09/12 s/p lap addie (spillage of bile content) drainage of RUQ abscess
- Appreciate surgery, OR cx pending
- Continue Zosyn.
Will de-escalate abx when final cx data available.
-Trend wbc.
[2024-09-13] MEDS: ROXICODONE 5 MG PO (10:33)
--- NOTE | 2024-09-13 10:47 | W.PN.HOSP.TC ---
Today's Communication/Plan
-
Follow-up with surgery recommendation
Continue with pain control, encourage ambulation and use of incentive spirometer
Assessment / Plan
Assessment / Plan
Physical Exam
General: Well Developed, Well Nourished, No Apparent Distress and Conversant
HEENT: NormoCephalic, Anicteric, Moist mucous membranes, Atraumatic and PERRLA
Respiratory: Clear
Cardiac: S1/S2 and Regular Rhythm
GI: Soft and status post surgery with right lower drain noted
Rectal: Deferred by Provider
Genito-urinary: Deferred by me
Musculoskeletal: No Clubbing, No Cyanosis and No Edema
Neuro: AO x 3
Hematologic/Lymphatic: No Lymphadenopathy
Psych: Calm
83-year-old coming with episode of acute abdominal pain
# Acute Gangrenous cholecystitis, intra-abdominal abscess s/p Laparoscopic Cholecystectomy with Cholangiogram and Drainage of intra-abdominal abscess with drain by Dr. Suresh on 09/12/24. No complications reported.
Patient does not have significant abdominal pain. No fever.
Continue pain control
Leukocytosis noted. No fever
Normal liver function test
Continue with mild IV fluid
Okay to resume DVT prophylaxis
Continue with intravenous Zosyn
Continue with GI prophylaxis
Surgery is following, appreciate help
Consulted ID, appreciate input primary
# Hypothyroidism, continue Synthroid
#Hyperlipidemia, continue with the Crestor
# History of GERD, continue with PPI
Total time spent to see the patient on the floor, examine the patient, review data and lab results, discuss treatment plan with patient, nursing staff around 55 minutes
Anticipated Discharge: > 48 hours
Subjective/Interval History
-
Date of Service: September 13, 2024
No chest pain
No nausea, tolerating diet
No fevers
Objective Data
-
Vital Signs:
Vital Signs
Temp Pulse Resp BP Pulse Ox
98.1 F 69 18 101/56 99
09/13/24 07:35 09/13/24 07:35 09/13/24 07:35 09/13/24 07:35 09/13/24 07:35
I&O
09/12/24 09/13/24 09/14/24
06:59 06:59 06:59
Intake Total 400 / 400 1640 / 1640
Output Total 375 / 375
Balance 400 / 400 1265 / 1265
[2024-09-13 11:20] VITALS: BP 147/68
--- NOTE | 2024-09-13 11:40 | CM ---
Reviewed the chart notes and spoke with the patient at the bedside. Patient is s/p lap addie for gangrenous gallbladder. Patient has a RICO drain. ID waiting on cultures for abx treatment. CM continues to be available to patient/family and is
monitoring medical plan for needs at discharge.
Plan: Discharge plans will depend on whether patient requires IV abx at discharge.
[2024-09-13] MEDS: NON-FORMULARY ITEM 1 DROP OPHTH (11:48)
[2024-09-13] MEDS: NON-FORMULARY ITEM OPHTH (11:48)
[2024-09-13 15:30] VITALS: BP 135/70
[2024-09-13] MEDS: LOVENOX 40 MG SC (18:02)
[2024-09-13] MEDS: CRESTOR 10 MG PO (18:07)
[2024-09-13] MEDS: FLOMAX 0.4 MG PO (18:07)
[2024-09-13 23:30] VITALS: BP 129/72
--- NOTE | 2024-09-14 04:36 | DOWNTIME ---
There was a [employer] Downtime on 09/14/2024 from 0100 to 09/14/2024 at 0355. Downtime documentation of patient's care, including medication administrations, has been reconciled in the electronic record per guidelines. Refer to the
patient's paper chart under the miscellaneous tab to see printed paper medication records and downtime forms.
[2024-09-14] MEDS: ZOSYN 50 IV ×2 (05:34→11:22)
[2024-09-14] MEDS: SYNTHROID 25 MCG PO (05:34)
[2024-09-14 07:15] LABS: Hematocrit 32.6 % (39.0-52.0); Hemoglobin 11.3 g/dL (13.0-18.0); Mean Corp Hgb Conc. 34.7 g/dL (33.0-37.0); Mean Corpuscular Hgb 31.7 pg (27.0-31.0); Mean Corpuscular Volume 91.3 fL (80.0-94.0); Mean Platelet Volume 10.3 fL (7.4-10.4); Platelet Count 188 10^3/uL (130-400); Red Blood Cell Count 3.57 10^6/uL (4.70-6.10); Red Cell Dist. Width 12.7 % (11.5-14.5); White Blood Cell Count 9.6 10^3/uL (4.8-10.8)
[2024-09-14 07:50] VITALS: BP 121/67
[2024-09-14] MEDS: NON-FORMULARY ITEM 1 DROP OPHTH (08:02)
[2024-09-14] MEDS: NSS (PRESERVATIVE FREE) 10 ML IV (08:04)
[2024-09-14] MEDS: MIRALAX 17 GRAMS PO (08:04)
[2024-09-14] MEDS: PROTONIX IV 40 MG IV (08:04)
[2024-09-14 09:33] LABS: ALT (SGPT) 37 U/L (0-50); AST (SGOT) 39 U/L (17-59); Albumin 3.3 g/dl (3.5-5.0); Alkaline Phosphatase 54 U/L (38-126); Blood Urea Nitrogen 18 mg/dl (9-20); Calcium 8.6 mg/dl (8.4-10.2); Carbon Dioxide 23 mmol/L (22-30); Chloride 104 mmol/L (98-107); Estimated Creatinine Clearance 45 ml/min; Glucose 100 mg/dl (70-99); Potassium 3.8 mmol/L (3.5-5.1); Sodium 138 mmol/L (135-145); Total Bilirubin 0.5 mg/dl (0.2-1.3); Total Protein 5.8 g/dl (6.3-8.2); eGFR 54.85
--- NOTE | 2024-09-14 10:22 | CM ---
Reviewed the chart notes. Patient is s/p lap addie for gangrenous gallbladder. Patient has a RICO drain. ID waiting on cultures for abx treatment. CM continues to be available to patient/family and is monitoring medical plan for needs at discharge.
Plan: Discharge plans will depend on whether patient requires IV abx at discharge.
--- NOTE | 2024-09-14 12:01 | W.PN.GS2 ---
Addendum entered and electronically signed by Jeremy Johnson MD 09/14/24 12:33:
I saw and examined the patient.
The resident's note was reviewed and I agree with the note.
Comment: POD2 s/p lap CCY for ACC with gangrenous features. Doing well. Exam benign. Drain DC'ed at bedside. Plan for DC home with abx per ID.
Original Note:
Today's Communication / Plan
-
OK to discharge from surgical perspective with instructions for LFD and follow up with general surgery OP within 2-3 weeks. Pending ID reccs on abx course
Assessment / Plan
-
83 yo M w/ acute gangrenous cholecystitis and secondary intra-abdominal abscess s/p cholecystectomy and drain placement POD2
Afebrile, VSS, WBC count wnl
- Tolerating low fat diet w/o complaints
- Pending ID opinion on d/c antibiotics for gangrenous gallbladder. From surgical standpoint, ok to d/c on PO abx if indicated
- RICO drain removed this morning. Instructions given verbally on wound care and will also be put in d/c instructions
OK to discharge from surgical perspective with instructions for LFD and follow up with general surgery OP within 2-3 weeks.
Subjective Data
-
Feeling well this morning. Has not had a bowel movement but is passing gas. He is tolerating his diet and ambulating well. He had no new fevers or chills and had no acute events overnight.
Objective Data
-
Intake and Output
09/13/24 09/14/24 09/15/24
06:59 06:59 06:59
Intake Total 1640 / 1640 1760 / 1760
Output Total 375 / 375 1495 / 1495
Balance 1265 / 1265 265 / 265
Intake:
Oral fluids 240 / 240 900 / 900
IV fluids (Total) 1300 / 1300 660 / 660
normosol 100 / 100
IV piggybacks 100 / 100 200 / 200
Output:
Drain Output (Total)
Right Alejo-Bustillo
Urine, Voided 325 / 325 1400 / 1400
Other:
Number of approximated MODERATE 1
amounts of urine
How many times incontinent 1
SATURATED amount urine
Vital Signs
Temp Pulse Resp BP Pulse Ox
98.2 F 76 16 121/67 97
09/14/24 07:50 09/14/24 07:50 09/14/24 07:50 09/14/24 07:50 09/14/24 07:50
Lab Results
09/14/24 05:17
09/14/24 09:01
Calcium 8.6 mg/dl (8.4-10.2) 09/14/24 09:01
Total Bilirubin 0.5 mg/dl (0.2-1.3) 09/14/24 09:01
Direct Bilirubin 0.1 mg/dl (0.0-0.4) 09/12/24 05:21
AST 39 U/L (17-59) 09/14/24 09:01
ALT 37 U/L (0-50) 09/14/24 09:01
Alkaline Phosphatase 54 U/L (38-126) 09/14/24 09:01
Total Protein 5.8 g/dl (6.3-8.2) L 09/14/24 09:01
Albumin 3.3 g/dl (3.5-5.0) L 09/14/24 09:01
Physical Exam
-
General: NAD
Abdominal: Soft, distended (improved from yesterday). NTTP except around the area of the drain. Drain site is clean, without surrounding erythema, induration, drainage. The RICO drain output is serosanguineous.
--- NOTE | 2024-09-14 12:23 | W.PN.ID1 ---
Date of Service
Date of Service: September 14, 2024
Today's Communication
- Can transition Zosyn to Augmentin 875m po bid x 7 more days.
I will call his if need to change abx when final cx data available.
-Nystatin swish and swallow for tongue.
Assessment / Plan
# Acute gangrenous cholecystitis
# RUQ intra-abd abscess
# Leukocytosis resolved
- 09/12 s/p lap addie (spillage of bile content) drainage of RUQ abscess
- Appreciate surgery, OR cx pending
-Per surgery,can dc home.
- Can transition Zosyn to Augmentin 875m po bid x 7 more days.
I will call his if need to change abx when final cx data available.
-Nystatin swish and swallow for tongue.
Chief Complaint
-: Other (cholecystitis)
Subjective / Review of Systems
No abd pain.
Tongue is brown. No dysphagia.
Vital Signs / Physical Exam
Vital Signs
Vital Signs
Temp Pulse Resp BP Pulse Ox
98.2 F 76 16 121/67 97
09/14/24 07:50 09/14/24 07:50 09/14/24 07:50 09/14/24 07:50 09/14/24 07:50
Physical Exam
Constitutional: No Acute Distress
Oropharyngeal: Other (tongue brownish discoloration)
Gastrointestinal: Soft, Non Tender and Non Distended
Extremities: Negative Edema
Objective Data
Lab Data
Lab Results
09/14/24 05:17
09/14/24 09:01
Estimated Creat Clear 45 ml/min 09/14/24 09:01
Total Bilirubin 0.5 mg/dl (0.2-1.3) 09/14/24 09:01
AST 39 U/L (17-59) 09/14/24 09:01
ALT 37 U/L (0-50) 09/14/24 09:01
Alkaline Phosphatase 54 U/L (38-126) 09/14/24 09:01
Most recent labs reviewed.
Micro Results:
09/12/24 13:45 Wound Culture - Preliminary
Abdomen Gram Stain - Preliminary
09/12/24 13:45 Anaerobic Culture - Preliminary
Abdomen Culture pending. Anaerobic cultures are examined after 3
days incubation. Additional information to follow.
09/11/24 CT a/p: Hazy about the gallbladder wall. This may be due to acute cholecystitis. Clinical and laboratory correlation recommended as well as confirmation with abdominal ultrasound if indicated clinically
09/11/24 Abd US: Mild gallbladder sludge versus a nonshadowing gallstone. Less likely. Associated gallbladder wall thickening. Findings concerning for acute cholecystitis.
Care Review
Plan reviewed with: Physician (Dr. Matson)
--- NOTE | 2024-09-14 12:44 | W.DCSUMMARY ---
Discharge Summary
Discharge Data
Date of Admission: 09/12/24
Date of Discharge: 09/14/24
-
Pending Results: No
Hospital Course
83 years old male presented with abdominal pain. Scan of abdomen & pelvis showed signs of acute cholecystitis. No elevation in liver enzymes. Patient was evaluated by surgery. Patient was diagnosed with acute cholecystitis. Patient underwent
laparoscopic cholecystectomy with cholangiogram, drainage of intra-abdominal abscess with drain placement by Dr. Suresh on September 12, 2024. No complications reported. Patient did not have significant pain postoperatively. He did not have fever.
He received intravenous antibiotic. Patient was evaluated by infectious disease doctor. He was able to tolerate diet. Surgery removed the drain. Patient was able to ambulate independently. Patient remained hemodynamically stable. Patient was
discharged on oral antibiotic. He was discharged in a stable condition.
Discharge Plan
-
Patient Disposition: Home (Routine Discharge)
Discharge Diagnosis/Procedures: Gangrenous cholecystitis. Laparoscopic cholecystectomy and drainage of intra-abdominal abscess.
Condition: Good
Diet: As tolerated
Activity: No strenuous activity
Bathing Restrictions: OK to Shower
Activity Restrictions/Additional Instructions:
Instructions following Laparoscopic cholecystectomy
Please call [phone] if you have any questions or concerns after your surgery.
Wound Care:
Your incisions are covered with skin glue which will come off on it�s own in 5-10 days.
It is ok to shower the day after your surgery. Do not scrub the incisions, let soap and water wash over them and pat dry.
� Bruising around your incisions is normal.
� Using ice packs will help minimize this swelling.
� No swimming or soaking incisions for 1 week.
� Your stitches will dissolve and do not need to be removed.
Urinary retention:
If you are unable to urinate 6-8 hours after your surgery, please call [phone] to discuss further management.
Activity:
No heavy lifting more than 15 pounds for the next 3 weeks, then you may gradually lift heavier objects as tolerated by discomfort. Otherwise activity as tolerated by your comfort level.
Pain Management:
Use Tylenol, ibuprofen and ice packs to treat your pain.
� You may take 650 milligrams of Tylenol (Max 3 grams per day) every 6 hours, and 600 mg of ibuprofen also every 6 hours. (you can alternate them every 3 hours)
� You may use an ice pack to your incision as needed.
� If you still have pain not controlled by these measures, take your prescription pain medication as prescribed.
Medications:
You may resume your home medications.
Bowel Medications:
Prescription pain medication can make you constipated. If you take this medication, also take colace 100 mg twice daily (this is over the counter). If this is not sufficient, you may take Miralax (polyethylene glycol) to help move your bowels.
Diet:
After your procedure, there are no dietary restrictions. You may notice loose stools for up to 4 weeks after surgery with fatty meals, if this is the case you may have to adjust your diet as needed.
Driving restrictions:
No driving if you are taking prescription pain medication or if you think your normal reaction time and attentiveness has been slowed by your surgery.
Things to Look out for:
Worsening Abdominal pain, redness or drainage from incision
Call Doctor for:
Please call if you notice worsening redness or drainage from incision(s) lasting longer than 5 days after your surgery, any foul-smelling drainage from the incision, pain not controlled by pain medications, persistent nausea and vomiting, or for any
fevers greater than 101.3 F. The number for questions/concerns is [phone]
Follow-up:
Follow-up appointment will be scheduled with your surgeon in 3-4 weeks. Please call prior to your appointment if you have any questions or concerns. [phone]
Referrals:
Boby Suresh MD [Active] - in two to four weeks
Babs Bhardwaj MD [Family Provider] -
Prescriptions:
New
amoxicillin-pot clavulanate 875-125 mg tablet
1 tab PO BID Qty: 14 0RF
nystatin 100,000 unit/mL suspension
5 ml PO QID 7 Days Qty: 140 0RF
Continued
levothyroxine [Synthroid] 25 mcg Tablet
25 mcg PO DAILY
tamsulosin [Flomax] 0.4 mg Capsule
0.4 mg PO QPM
cyclosporine [Restasis] 0.05 % Dropperette
1 drp OPHTHALMIC (EYE) DAILY
metformin 750 mg Tablet Extended Release 24 Hr
750 mg PO QPM
rosuvastatin [Crestor] 10 mg Tablet
10 mg PO QPM
omega [id number]-hmt-fish oil [Fish Oil] 1,000 mg (120 mg-180 mg) Capsule
2 cap PO BID
psyllium husk [Metamucil] 0.4 gram Capsule
0.4 g PO BID
Xiidra 5 % Dropperette
1 drp OPHTHALMIC (EYE) DAILY
Red Grape Leaves
1 cap PO DAILY
Patient Comments:
Similar to Resveritrol
PreserVision AREDS-2 250-90-40-1 mg Capsule
1 tab PO BID
Discharge Orders:
Discharge Patient (As Directed); Ordered 09/14/24
Ordered By: Israel Matson
Discharge Date and Time
Discharge Date/Time: 09/14/24 13:50
Print Language: DANISH
[2024-09-14 12:47] VITALS: BP 136/70
[2024-09-14] MEDS: MYCOSTATIN ORAL SUSPENSION 5 ML PO (12:56)
== END 2024-09-14 13:50 | disposition home or self-care (01) | DRG 417 ==
LOC: 2 SOUTH 00:31
PROVIDERS: Physician Assistant; Radiology Diagnostic Radiology; ADMITTING PHYSICIAN Internal Medicine; ATTENDING PHYSICIAN Internal Medicine; EMERGENCY PHYSICIAN Student in an Organized Health Care Education/Training Program; FAMILY PHYSICIAN Internal Medicine; OTHER PHYSICIAN Internal Medicine Infectious Disease; OTHER PHYSICIAN Surgery
PROC: BF101ZZ Fluoroscopy of Bile Ducts using Low Osmolar Contrast (ICD-10-PCS; 2024-09-12)
PROC: 0W9G30Z Drainage of Peritoneal Cavity with Drainage Device, Percutaneous Approach (ICD-10-PCS; 2024-09-12)
PROC: 0FT44ZZ Resection of Gallbladder, Percutaneous Endoscopic Approach (ICD-10-PCS; 2024-09-12)
DX: K81.0 Acute cholecystitis (principal); K65.1 Peritoneal abscess; K82.A1 Gangrene of gallbladder in cholecystitis; J45.909 Unspecified asthma, uncomplicated; K21.9 Gastro-esophageal reflux disease without esophagitis; E03.9 Hypothyroidism, unspecified; N40.0 Benign prostatic hyperplasia without lower urinary tract symptoms; E78.00 Pure hypercholesterolemia, unspecified; R73.9 Hyperglycemia, unspecified; I70.0 Atherosclerosis of aorta; Z79.84 Long term (current) use of oral hypoglycemic drugs; Z92.3 Personal history of irradiation; Z85.46 Personal history of malignant neoplasm of prostate; Z79.890 Hormone replacement therapy
CPT/HCPCS: 88304; 74177; 74300; 76000; 76700; 80048; 80053; 80076; 81003; 83690; 84484; 85025; 85027; 87070; 87075; 87205; 93005; 96374; 99285; A4300; Q9967

== ENCOUNTER → 2024-10-01 11:00 | Outpatient (REF) | payer MEDICARE, SELFPAY ==
[2024-10-01 12:40] LABS: % Basophils 1.3 % (0-2); % Eosinophils 5.9 % (0-6); % Immature Granulocytes 0.2 % (0-0.5); % Lymphocytes 24.3 % (20.5-51.1); % Monocytes 8.3 % (1.7-9.3); Absolute Basophils 0.1 10^3/uL (0-0.2); Absolute Eosinophils 0.3 10^3/uL (0-0.7); Absolute Lymphocytes 1.1 10^3/uL (1.2-3.4); Absolute Monocytes 0.4 10^3/uL (0.1-0.6); Absolute Neutrophils 2.7 10^3/uL (1.4-6.5); Hematocrit 36.5 % (39.0-52.0); Hemoglobin 12.8 g/dL (13.0-18.0); Mean Corp Hgb Conc. 35.1 g/dL (33.0-37.0); Mean Corpuscular Hgb 31.3 pg (27.0-31.0); Mean Corpuscular Volume 89.2 fL (80.0-94.0); Mean Platelet Volume 9.9 fL (7.4-10.4); Nucleated Red Blood Cells % 0 % (-); Platelet Count 304 10^3/uL (130-400); Red Blood Cell Count 4.09 10^6/uL (4.70-6.10); Red Cell Dist. Width 12.4 % (11.5-14.5); White Blood Cell Count 4.6 10^3/uL (4.8-10.8)
[2024-10-01 13:08] LABS: ALT (SGPT) 23 U/L (0-50); AST (SGOT) 26 U/L (17-59); Albumin 4.3 g/dl (3.5-5.0); Alkaline Phosphatase 75 U/L (38-126); Blood Urea Nitrogen 14 mg/dl (9-20); Calcium 9.8 mg/dl (8.4-10.2); Carbon Dioxide 21 mmol/L (22-30); Chloride 106 mmol/L (98-107); Glucose 101 mg/dl (70-99); HDL Cholesterol 67 mg/dl; LDL Cholesterol, Calculated 70 mg/dl; Potassium 4.5 mmol/L (3.5-5.1); Sodium 141 mmol/L (135-145); Total Bilirubin 0.5 mg/dl (0.2-1.3); Total Cholesterol 154 mg/dl (50-199); Total Protein 7.2 g/dl (6.3-8.2); Triglyceride 89 mg/dl (10-149); Very Low Density Lipoprotein 17 mg/dl (0-30); eGFR > 60.00
[2024-10-01 13:37] LABS: TSH Reflex To Free T4 2.74 uIU/ml (0.47-4.68)
[2024-10-02 08:33] LABS: Glycohemoglobin (HgbA1c) 5.5 % (4.0-5.6)
== END ==
LOC: REG 11:00
PROVIDERS: ATTENDING PHYSICIAN Internal Medicine
DX: E78.2 Mixed hyperlipidemia (principal); R73.9 Hyperglycemia, unspecified; C61 Malignant neoplasm of prostate; E03.9 Hypothyroidism, unspecified; R53.83 Other fatigue
CPT/HCPCS: 36415; 80053; 80061; 83036; 84443; 85025

== ENCOUNTER → 2024-11-17 16:23 | Outpatient (REF) | payer MEDICARE, SELFPAY ==
[2024-11-17 17:49] LABS: PSA, Total - Diagnostic 0.45 ng/ml (0.0-4.0)
== END ==
LOC: REG 16:23
PROVIDERS: ATTENDING PHYSICIAN Family Medicine Geriatric Medicine; FAMILY PHYSICIAN Internal Medicine
DX: C61 Malignant neoplasm of prostate (principal)
CPT/HCPCS: 36415; 84153

== ENCOUNTER 2025-01-31 06:21 | Day surgery (SDC) | payer MEDICARE, SELFPAY ==
[2025-01-31 08:28] LABS: Glucose - Point of Care 97 mg/dl (70-99)
== END 2025-01-31 09:56 | disposition home or self-care (01) ==
LOC: GI 06:21
PROVIDERS: ATTENDING PHYSICIAN Surgery
DX: Z12.11 Encounter for screening for malignant neoplasm of colon (principal); K57.30 Diverticulosis of large intestine without perforation or abscess without bleeding; D12.3 Benign neoplasm of transverse colon; K63.5 Polyp of colon; Z86.0101 Personal history of adenomatous and serrated colon polyps
CPT/HCPCS: 45385; 45381; 45380; 88305; 82962

== ENCOUNTER → 2025-02-14 16:36 | Outpatient (REF) | payer MEDICARE, SELFPAY ==
[2025-02-14 18:00] LABS: % Basophils 0.8 % (0-2); % Eosinophils 8.5 % (0-6); % Immature Granulocytes 0.3 % (0-0.5); % Lymphocytes 23.5 % (20.5-51.1); % Monocytes 10.6 % (1.7-9.3); % Neutrophils 56.3 % (42.2-75.2); Absolute Basophils 0.1 10^3/uL (0-0.2); Absolute Eosinophils 0.5 10^3/uL (0-0.7); Absolute Lymphocytes 1.4 10^3/uL (1.2-3.4); Absolute Monocytes 0.6 10^3/uL (0.1-0.6); Absolute Neutrophils 3.4 10^3/uL (1.4-6.5); Hematocrit 37.7 % (39.0-52.0); Hemoglobin 12.7 g/dL (13.0-18.0); Mean Corp Hgb Conc. 33.7 g/dL (33.0-37.0); Mean Corpuscular Hgb 31.5 pg (27.0-31.0); Mean Corpuscular Volume 93.5 fL (80.0-94.0); Mean Platelet Volume 9.8 fL (7.4-10.4); Nucleated Red Blood Cells % 0 % (-); Platelet Count 233 10^3/uL (130-400); Red Blood Cell Count 4.03 10^6/uL (4.70-6.10)
[2025-02-14 18:39] LABS: PSA, Total - Diagnostic 0.53 ng/ml (0.0-4.0)
== END ==
LOC: REG 16:36
PROVIDERS: ATTENDING PHYSICIAN Family Medicine Geriatric Medicine; FAMILY PHYSICIAN Internal Medicine; OTHER PHYSICIAN Radiology Radiation Oncology
DX: C61 Malignant neoplasm of prostate (principal); R79.89 Other specified abnormal findings of blood chemistry
CPT/HCPCS: 36415; 84153; 85025

== ENCOUNTER → 2025-09-27 13:52 | Outpatient (REF) | payer MEDICARE, SELFPAY ==
[2025-09-27 14:58] LABS: Hematocrit 40.4 % (39.0-52.0); Hemoglobin 13.5 g/dL (13.0-18.0); Mean Corp Hgb Conc. 33.4 g/dL (33.0-37.0); Mean Corpuscular Volume 93.1 fL (80.0-94.0); Nucleated Red Blood Cells % 0 % (-); Platelet Count 221 10^3/uL (130-400); Red Cell Dist. Width 12.3 % (11.5-14.5)
[2025-09-27 15:27] LABS: ALT (SGPT) 41 U/L (0-50); AST (SGOT) 34 U/L (17-59); Albumin 4.5 g/dl (3.5-5.0); Alkaline Phosphatase 63 U/L (38-126); Blood Urea Nitrogen 18 mg/dl (9-20); Calcium 9.8 mg/dl (8.4-10.2); Carbon Dioxide 25 mmol/L (22-30); Chloride 105 mmol/L (98-107); Glucose 99 mg/dl (70-99); HDL Cholesterol 78 mg/dl; LDL Cholesterol, Calculated 56 mg/dl; Potassium 4.6 mmol/L (3.5-5.1); Sodium 138 mmol/L (135-145); Total Protein 7.4 g/dl (6.3-8.2); Very Low Density Lipoprotein 15 mg/dl (0-30); eGFR > 60.00
[2025-09-27 15:52] LABS: PSA, Total - Diagnostic 0.25 ng/ml (0.0-4.0)
[2025-09-28 08:39] LABS: Glycohemoglobin (HgbA1c) 5.3 % (4.0-5.9)
== END ==
LOC: REG 13:52
PROVIDERS: ATTENDING PHYSICIAN Family Medicine Geriatric Medicine; FAMILY PHYSICIAN Internal Medicine
DX: R73.9 Hyperglycemia, unspecified (principal); E03.9 Hypothyroidism, unspecified; D72.829 Elevated white blood cell count, unspecified; Z12.5 Encounter for screening for malignant neoplasm of prostate; C61 Malignant neoplasm of prostate
CPT/HCPCS: 36415; 80053; 80061; 83036; 84153; 84443; 85025